=== PATIENT | female | born 1945 | race Caucasian/White ===

== ENCOUNTER 2018-08-19 19:15 | Emergency (ER) | payer OTHER ==
[2018-08-19 19:29] VITALS: BP 143/74
[2018-08-19] MEDS ORDERED: TDAP ADULT 0.5 ML INJ (BOOSTRIX) IM ONE (19:32)
--- NOTE | 2018-08-19 19:44 | EDPHY ---
H & P Stated Complaint: Fall, Right Wrist and Face Injury Time Seen by Provider: 08/19/18 19:25 HPI/ROS: CHIEF COMPLAINT: Facial injury, right wrist injury, left hand injury post mechanical fall HISTORY OF PRESENT ILLNESS: 73-year-old female with no anticoagulant use history, arrives via private vehicle, not a trauma activation, complaining of acute right facial and head injury, right wrist injury, left hand injury after she sustained a mechanical fall, walking in the dark, tripped on a speed bump falling forward impacting said areas. She feels as if her right zygomatic arch is offset does not feel normal. Teeth are normally aligned. No mandible injury. No intraoral bleeding. No loss of consciousness. No anticoagulant use. No drug or alcohol abuse. She is able to bear weight on her bilateral lower extremities although does note abrasion. Tetanus is out-of-date. This was a mechanical episode with no syncope. No midline C-spine pain. No peripheral paresthesia, weakness, numbness. No chest pain or trauma no abdominal pain or trauma. PRIMARY CARE PROVIDER: Alonso REVIEW OF SYSTEMS: 10 systems reviewed and negative with the exception of the elements mentioned in the history of present illness PAST MEDICAL/SURGICAL HISTORY: no anticoagulant use, no relevant medical/ surgical history SOCIAL HISTORY: denies alcohol use at time of incident PHYSICAL EXAM 1) GENERAL: Well-developed, well-nourished, alert and oriented. Appears to be in no acute distress. Answering questions appropriately. 2) HEAD: Normocephalic, atraumatic 3) HEENT: [Pupils equal, round, reactive to light bilaterally. Negative Horners. Nasopharynx, oropharynx, clear. No deformity or angulation of nose. No septal hematoma. No rhinorrhea. No oral trauma. Ears bilaterally with normal tympanic membranes. No hemotympanum. No fluid or blood in the external auditory canal. No raccoon eyes. No Connor sign. Teeth are normally aligned with no gross malocclusion, TMJ bilaterally nontender, tender to palpation right zygomatic arch, no crepitus, no laceration no abrasion no ecchymosis. 4) NECK: No cervical collar is on. Posterior cervical spine is nontender, no stepoff, no effusion. Full range of motion which does not elicit any midline cervical spine pain, no posterior midline tenderness, no step-off.] 5) LUNGS: Clear to auscultation bilaterally, no wheezes, no rhonchi, no retractions. No obvious signs of trauma. No chest wall pain. No flaring, no grunting. Moving symmetrically. No crepitus. 6) HEART: [Regular rate and rhythm, 7) ABDOMEN: No guarding, no rebound, no focal tenderness, no peritoneal signs, no signs of trauma, no ecchymosis 8) MUSCULOSKELETAL: Right upper extremity: Visible deformity to the right wrist with intact skin. Radial ulnar median nerve function intact. Proximally nontender hand nontender. Brisk pulses and capillary refill. Soft compartments. abrasion to the 5th metacarpal palmar aspect. Left upper extremity: No visible trauma. No tenderness to palpation. Full range of motion which is pain free.. Normal cascading of digit. No laceration no abrasion. Wrist nontender. Brisk pulses and capillary refill. Radial ulnar median nerve function intact. Soft compartments Bilateral lower extremities: Full pain-free range of motion. Full weight- bearing. No pain with axial loading of the knees. Soft compartments. Moving all extremities, no focal areas of tenderness, no obvious trauma. 9) BACK: No midline vertebral tenderness, no fluctuance, no step-off, no obvious trauma, no visual or palpable abnormality. 10) SKIN: Abrasion to right hand DIFFERENTIAL DIAGNOSIS: Not necessarily in any particular order, my differential diagnosis includes, but is not limited to, concussion, skull fracture, intraparenchymal contusion, subarachnoid, subdural and epidural hematoma. The patient understands that this diagnosis is provisional and can never be 100% accurate. - Personal History Current Tetanus Diphtheria and Acellular Pertussis (TDAP): Yes - Medical/Surgical History Hx Asthma: No Hx Chronic Respiratory Disease: No Hx Diabetes: No Hx Cardiac Disease: No Hx Renal Disease: No Hx Cirrhosis: No Hx Alcoholism: No Hx HIV/AIDS: No Hx Splenectomy or Spleen Trauma: No Other PMH: denies - Social History Smoking Status: Never smoked Constitutional: Initial Vital Signs Temperature (C) 36.7 C 08/19/18 19:27 Heart Rate 83 08/19/18 19:27 Respiratory Rate 18 08/19/18 19:27 Blood Pressure 143/74 H 08/19/18 19:27 O2 Sat (%) 98 08/19/18 19:27 O2 Delivery Mode Room Air Allergies/Adverse Reactions: No Known Allergies Allergy (Verified 08/19/18 19:26) Home Medications: Medication Instructions Recorded Cephalexin [Keflex] 500 mg PO TID 7 Days cap 08/19/18 Estrogen Cream 08/19/18 Medical Decision Making - Diagnostics Imaging Results: Imaging Impressions Head CT 08/19/18 19:32 Impression: 1. Negative for intracranial posttraumatic sequela identified. 2. Minimal left sphenoid sinus opacification. Results called and discussed with Anshul BELLAMY on 08/19/2018 at 20:02. Wrist X-Ray 08/19/18 19:32 Impression: Intra-articular fracture distal right radius. Hand X-Ray 08/19/18 19:34 Impression: Fractures of the proximal shaft of the fifth metacarpal and the right radius.: Images myself Procedures: Procedure: Splint A sugar-tong Orthoglass splint was applied by ER copier technician. After application of the splint I returned and re-examined the patient. The splint was adequately immobilizing the joint and distal to the splint the patient's circulation and sensation were intact. Patient shows no signs of compartment syndrome. Was given orthopedic precautions. ED Course/Re-evaluation: 7:40 p.m.: Head CT ordered in this patient for trauma for the following indication: gReater than 65 years old 8:30 p.m.: I reviewed the patient's imaging results with her. Tetanus has been updated. She is answering questions appropriately. She is noted to have a fracture the base for 5th metacarpal carpal as well as intra-articular radial fracture. On exam she has a superficial abrasion to her distal 5th metacarpal. While I think that communication between this and her fracture the base of the 5th metacarpals less than likely, skin every fully ruled out. At this time I do not think that emergent orthopedic consultation is indicated. I am starting her on prophylactic antibiotics and recommend she follow up with [facility]. Today is Monday. Recommend she contact [facility] tomorrow to be seen sometime this week. In the meantime given my usual customary orthopedic precautions instructions. She is also given my usual and customary head injury precautions instructions. She feels comfortable being discharged. Care of patient under supervision of secondary supervising physician Dr Dunn. 9:02 p.m.: Patient in complaining now of left hand pain. Will obtain x-ray - Data Points Medications Given: Discontinued Medications Diphtheria/Tetanus/Acell Pertussis (Boostrix) 0.5 ml IM .ONCE ONE Stop: 08/19/18 19:33 Last Admin: 08/19/18 19:55 Dose: 0.5 ml Departure - Departure Disposition: Home, Routine, Self-Care Clinical Impression: Right wrist fracture, Displaced fracture of neck of right fifth metacarpal bone Condition: Good Instructions: Hand Fracture (ED), Wrist Fracture in Adults (ED), Head Injury ( ED) Additional Instructions: Return to the ER immediately if you experience discoloration, have worsening pain, numbness, tingling, or any other symptoms that concern you. If you received x-rays in the emergency department today, be advised, that ligamentous , tendon, muscular, and other non-bony injury cannot be fully ruled out. Try to keep your affected extremity elevated above the level of your chest, and keep cold packs on the affected area, for the next 48 hours. ALTHOUGH THERE IS NO EVIDENCE OF SERIOUS HEAD INJURY AT THIS TIME, DELAYED SIGNS CAN APPEAR 24 TO 48 HOURS AFTER INJURY. PLEASE RETURN TO THE EMERGENCY DEPARTMENT (ED) IMMEDIATELY IF YOU HAVE INCREASED HEADACHE, PERSISTENT HEADACHE , VOMITING, WEAKNESS, CONFUSION OR VISUAL PROBLEMS. WE RECOMMEND THAT YOU DO NOT RESUME CONTACT SPORTS OR ACTIVITIES THAT TAKE COORDINATION OR BALANCE SUCH SKIING OR RIDING A BICYCLE UNTIL CLEARED TO DO SO BY YOUR DOCTOR OR BY A NEUROLOGIST. Referrals: Follow-up, with [facility] in 2 days [Other] - As per Instructions Prescriptions: Cephalexin [Keflex] 500 mg PO TID 7 Days cap
[2018-08-19] MEDS ORDERED: CEPHALEXIN 500 MG CAP PO ONE ×2 (21:31→21:33)
== END 2018-08-19 21:37 | disposition home or self-care (01) ==
PROC: 2W3CX1Z Immobilization of Right Lower Arm using Splint (ICD-10-PCS; principal; 2018-08-19)
DX: S62.326A Displaced fracture of shaft of fifth metacarpal bone, right hand, initial encounter for closed fracture (principal); S52.591A Other fractures of lower end of right radius, initial encounter for closed fracture; M79.642 Pain in left hand; Z23 Encounter for immunization; W01.0XXA Fall on same level from slipping, tripping and stumbling without subsequent striking against object, initial encounter; Y92.9 Unspecified place or not applicable; Y93.9 Activity, unspecified; Y99.9 Unspecified external cause status
CPT/HCPCS: 29125; 70450; 73110; 73130; 90471; 90715; 99284; A4565